=== PATIENT | female | born 1985 | race Caucasian/White ===

== ENCOUNTER 2018-05-07 12:34 | Inpatient (IN) | payer MEDICAID ==
[2018-05-07] MEDS: ACETAMINOPHEN 325 MG TAB PO (18:57)
[2018-05-07] MEDS: LACTATED RINGER'S 1,000 ML IV (19:15)
[2018-05-07 19:52] LABS: ADD MAN DIFF? NO
[2018-05-07 19:56] LABS: BASOPHILS % 0.2 % (0.0-2.0); EOSINOPHILS % 0.2 % (0.0-7.0); HEMOGLOBIN 12.6 g/dl (12.0-16.0); LYMPHOCYTES # 3.3 10^3/ul (0.8-2.9); LYMPHOCYTES % 26.4 % (15.0-51.0); MEAN CORPUSCULAR HEMOGLOBIN 29.6 pg (29.0-33.0); MEAN CORPUSCULAR HGB CONC 33.2 g/dl (32.0-37.0); MEAN CORPUSCULAR VOLUME 89.4 fl (82.0-101.0); MEAN PLATELET VOLUME 11.7 fl (7.4-10.4); MONOCYTE # 0.7 10^3/ul (0.3-0.9); MONOCYTES % 5.6 % (0.0-11.0); NEUTROPHIL # 8.5 10^3/ul (1.6-7.5); NEUTROPHILS % 67.2 % (39.0-77.0); PLATELET COUNT 194 10^3/UL (140-415); RED BLOOD COUNT 4.25 10^6/ul (4.20-5.40); RED CELL DISTRIBUTION WIDTH 14.2 % (11.5-14.5)
[2018-05-07 19:56] LABS: WHITE BLOOD COUNT 12.6 10^3/ul (4.8-10.8)
[2018-05-07 20:12] LABS: INR 0.89; PROTIME 12.1 Sec (11.9-14.9); PT RATIO 0.9
[2018-05-07 20:13] LABS: PARTIAL THROMBOPLASTIN TIME 31.1 Sec (25.0-35.0)
[2018-05-07 20:14] LABS: ALANINE AMINOTRANSFERASE 17 IU/L (13-69); ALBUMIN 3.8 g/dl (3.3-4.9); ALBUMIN/GLOBULIN RATIO 1.11; ALKALINE PHOSPHATASE 82 IU/L (42-121); ANION GAP 15 (8-16); ASPARTATE AMINO TRANSFERASE 18 IU/L (15-46); BILIRUBIN,INDIRECT 0.4 mg/dl (0-1.1); BILIRUBIN,TOTAL 0.4 mg/dl (0.2-1.3); BLOOD UREA NITROGEN 8 mg/dl (7-20); CALCIUM 9.5 mg/dl (8.4-10.2); CARBON DIOXIDE 25 mmol/L (21-31); CHLORIDE 104 mmol/L (97-110); CREATININE 0.49 mg/dl (0.44-1.00); GLUCOSE 92 mg/dl (70-220); POTASSIUM 3.5 mmol/L (3.5-5.1); SODIUM 140 mmol/L (135-144); TOTAL PROTEIN 7.2 g/dl (6.1-8.1); URIC ACID 5.3 mg/dl (3.1-7.9)
[2018-05-07] MEDS ORDERED: ONDANSETRON 4 MG INJ IV (21:00)
[2018-05-07] MEDS: BETAMET NA PHOS/AC(6 MG/ML) 5ML INJ IM (21:25)
[2018-05-07 22:18] LABS: ADD UMIC YES; UR ASCORBIC ACID NEGATIVE (NEGATIVE); UR BILIRUBIN (Dip) NEGATIVE (NEGATIVE); UR BLOOD (Dip) NEGATIVE (NEGATIVE); UR CLARITY SLIGHTLY CLOUDY (CLEAR); UR COLOR YELLOW (YELLOW); UR GLUCOSE (Dip) NEGATIVE (NEGATIVE); UR KETONES (Dip) 2+ mg/dL (NEGATIVE); UR LEUKOCYTE ESTERASE (Dip) NEGATIVE Leu/ul (NEGATIVE); UR MUCUS FEW /HPF (NONE SEEN); UR NITRITE (Dip) NEGATIVE (NEGATIVE); UR RBC 5 /HPF (0-5); UR SPECIFIC GRAVITY (Dip) 1.029 (1.003-1.030); UR SQUAMOUS EPITHELIAL CELL FEW /HPF (FEW); UR TOTAL PROTEIN (Dip) 2+ mg/dl (NEGATIVE); UR UROBILINOGEN (Dip) NEGATIVE (NEGATIVE); UR WBC 1 /HPF (0-5)
[2018-05-08] MEDS: LACTATED RINGER'S 1,000 ML IV ×3 (01:03→17:27)
[2018-05-08] MEDS: FERROUS SULFATE (EC) 325 MG TAB PO (09:25)
[2018-05-08] MEDS: PRENATAL VITAMIN PO (09:25)
[2018-05-08] MEDS: METHYLDOPA 250 MG TAB PO (09:25)
[2018-05-08] MEDS: BETAMET NA PHOS/AC(6 MG/ML) 5ML INJ IM (21:36)
[2018-05-08 22:17] LABS: RAPID PLASMA REAGIN NONREACTIVE (NR)
[2018-05-09] MEDS: LACTATED RINGER'S 1,000 ML IV ×2 (01:47→10:17)
[2018-05-09] MEDS: FERROUS SULFATE (EC) 325 MG TAB PO (09:12)
[2018-05-09] MEDS: PRENATAL VITAMIN PO (09:13)
[2018-05-09] MEDS: METHYLDOPA 250 MG TAB PO (09:13)
[2018-05-09 16:42] LABS: COLLECTION PERIOD 24 hrs
[2018-05-09 17:21] LABS: VOLUME 6000 mls
[2018-05-09 17:22] LABS: COLLECTION PERIOD 24 hrs; SCRET 0.49 mg/dl (0.44-1.00); VOLUME 6000 ml/24hrs
[2018-05-09 17:23] LABS: CREATININE CLEARANCE 242.6 mls/min (84.0-162.0); CREATININE,URINE RANDOM 28.53 mg/dl (20-320)
== END 2018-05-09 18:24 | disposition home or self-care (01) | DRG 781 ==
LOC: OBT 12:34 → L-D 12:46 → OBT 13:34 → L-D 13:34
DX: O11.3 Pre-existing hypertension with pre-eclampsia, third trimester (principal); O10.013 Pre-existing essential hypertension complicating pregnancy, third trimester; O36.8330 Maternal care for abnormalities of the fetal heart rate or rhythm, third trimester, not applicable or unspecified; R51 Headache; Z3A.34 34 weeks gestation of pregnancy
CPT/HCPCS: 59025; 76815; 76816; 76818; 80053; 81001; 82575; 84156; 84560; 85025; 85384; 85610; 85730; 86592; 86850; 86900; 86901